=== PATIENT | male | born 1975 ===

== ENCOUNTER 2016-10-14 20:25 | Emergency (ER) | payer BC ==
[2016-10-14 20:39] VITALS: BP 143/84; TEMP 98.2
[2016-10-14] MEDS ORDERED: ACETAMINOPHEN 500 MG TAB PO ONE (20:40)
[2016-10-14] MEDS ORDERED: IBUPROFEN 600 MG TAB PO ONE (20:40)
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
[2016-10-14] MEDS ORDERED: OXYCODONE/APAP 5/325MG PREPACK#4 BTL TAKEHOME ONE (21:10)
[2016-10-14 21:50] VITALS: PULSE 83; RESP 16; O2SAT 97
== END 2016-10-14 21:38 | disposition home or self-care (01) ==
LOC: CED 20:25
DX: S62.024A Nondisplaced fracture of middle third of navicular [scaphoid] bone of right wrist, initial encounter for closed fracture (principal); F17.200 Nicotine dependence, unspecified, uncomplicated; V18.0XXA Pedal cycle driver injured in noncollision transport accident in nontraffic accident, initial encounter; Y92.014 Private driveway to single-family (private) house as the place of occurrence of the external cause; Y99.8 Other external cause status; Y93.55 Activity, bike riding
CPT/HCPCS: 73110-PO; A4565